=== PATIENT | male | born 1990 | race Two or more races ===

== ENCOUNTER 2016-12-28 10:10 | Emergency (ER) | payer SELFPAY ==
[~2016-12-28] VITALS: Ht 167.6 cm; Wt 72.6 kg
[2016-12-28 10:17] VITALS: BP 209/127
--- NOTE | 2016-12-28 17:33 | Emergency Room Report ---
History of Present Illness General Chief Complaint: Laceration Source: EMS Present Illness Allergies: Coded Allergies: No Known Allergies (Unverified , 12/28/16) Nursing Documentation-[facility] Past Medical History: No History, Except For Hx Diabetes: Yes Physical Exam Vital Signs Date Time Temp Pulse Resp B/P Pulse Ox O2 Delivery O2 Flow Rate FiO2 12/28/16 10:04 147 16 209/127 99 Room Air Medical Decision Making Diagnostic Impression: Primary Impression: laceration ER Course 26-year-old male brought to ED for evaluation. Sustained laceration to face. Patient denied to EMS how he he got the injury. Upon arrival patient states that he did not want to be evaluated. Does not want me to suture or examine him. Patient states he will leave. I states the patient that he will have to leave AGAINST MEDICAL ADVICE. Understands the risks of leaving. Patient has competency to make his own decisions. Signed AMA form. Last Vital Signs Date Time Temp Pulse Resp B/P Pulse Ox O2 Delivery O2 Flow Rate FiO2 12/28/16 10:17 16 209/127 99 Room Air 12/28/16 10:04 147 Status: unchanged Disposition: AGAINST MEDICAL ADVICE Condition: Stable Referrals: NOT CHOSEN GILBERTO/,REFERRING (PCP) TRAMAINE NOBLES M.D. Dec 28, 2016 17:33
== END 2016-12-28 10:20 | disposition left against medical advice (07) ==
LOC: EDBD 10:10 → EMR 10:16
DX: S01.81XA Laceration without foreign body of other part of head, initial encounter (principal); X58.XXXA Exposure to other specified factors, initial encounter; Y93.9 Activity, unspecified; Y92.9 Unspecified place or not applicable; Z53.29 Procedure and treatment not carried out because of patient's decision for other reasons
CPT/HCPCS: 99283